=== PATIENT | female | born 1970 | race American Indian/Alaskan Native ===

== ENCOUNTER 2017-03-10 17:43 | Emergency (ER) | payer SELFPAY ==
[2017-03-10] MEDS ORDERED: NORCO 7.5/325 PO ONE (23:02)
[2017-03-10 23:23] LABS: Hematocrit 25.2 % (30.3-42.9); Hemoglobin 7.5 gm/dl (10.1-14.3); Mean Corpuscular HGB Conc 30 % (30-34); Platelet Count 510 K/mm3 (140-440); Red Blood Count 3.86 M/mm3 (3.65-5.03); Red Cell Distribution Width 19.3 % (13.2-15.2); White Blood Count 5.6 K/mm3 (4.5-11.0)
[2017-03-10 23:25] LABS: Mean Corpuscular Hemoglobin 20 pg (28-32); Mean Corpuscular Volume 65 fl (79-97)
[2017-03-10 23:36] LABS: Anion Gap 16 mmol/L; BUN/Creatinine Ratio 14; Blood Urea Nitrogen 10 mg/dL (7-17); Calcium 8.9 mg/dL (8.4-10.2); Carbon Dioxide 22 mmol/L (22-30); Chloride 104.8 mmol/L (98-107); Glucose 106 mg/dL (65-100); Potassium 4.1 mmol/L (3.6-5.0); Sodium 139 mmol/L (137-145)
--- NOTE | 2017-03-11 01:18 | Cat Scan Report ---
FINAL REPORT EXAM: CT HEAD/BRAIN WO CON HISTORY: dizziness, lightheadedness TECHNIQUE: Standard unenhanced CT of the head at 5.0 millimeter axial increments. PRIORS: None. FINDINGS: The ventricular system is normal in size and configuration. There is no evidence for parenchymal volume loss. There is no evidence for mass lesion, mass effect, midline shift, acute intracranial hemorrhage, or acute ischemia/ infarction. No evidence for acute skull fracture is seen. No abnormality in the overlying scalp soft tissues is seen. Visualized paranasal sinuses are clear. IMPRESSION: Negative CT of the head. No acute intracranial process noted.
[2017-03-11 01:37] LABS: Bilirubin,Urine NEG (Negative); Blood,Urine NEG (Negative); Ketones,Urine NEG (Negative); Leukocyte Esterase,Urine NEG (Negative); Mucus,Urine FEW /HPF; Nitrite,Urine NEG (Negative); Protein,Urine <15 mg/dL mg/dL (Negative)
[2017-03-11 04:24] VITALS: BP 127/63
--- NOTE | 2017-03-11 05:37 | Emergency Department Report ---
ED General Adult HPI - General Chief complaint: Extremity Injury, Lower Stated complaint: DIZZY, RIGHT SIDE PAIN Source: patient Mode of arrival: Ambulatory Limitations: No Limitations - History of Present Illness Initial comments: 47 year old female presents to ED with intermittent right sided body pain, dizziness, lightheadness x1 week. patient is ambulatory with normal observed gait. patient is stable, neurologiaclly intact and in no acute distress. patient denies fall/injury. patient states pain started in her right foot and began to travel up to right shoulder. -: Gradual, week(s) (1) Severity scale (0 -10): 0 Quality: aching Consistency: intermittent Improves with: immobilization Worsens with: movement Associated Symptoms: denies: confusion, chest pain, cough, diaphoresis, fever/ chills, headaches, loss of appetite, malaise, nausea/vomiting, rash, seizure, shortness of breath, syncope, weakness - Related Data Previous Rx's Medication Instructions Recorded Last Taken Type Ibuprofen [Motrin] 600 mg PO Q8H PRN #20 tablet 02/17/14 Unknown Rx traMADol [Ultram] 50 mg PO Q6HR PRN #14 tablet 02/17/14 Unknown Rx Azithromycin [Zithromax Z-JOSE] 0 mg PO DAILY #5 tab 01/23/15 Unknown Rx Benzonatate [Tessalon Perles] 100 mg PO Q8HR #20 capsule 01/23/15 Unknown Rx guaiFENesin/DEXTROMETHORPHAN 1 each PO BID #20 tab.er.12h 01/23/15 Unknown Rx [Mucinex DM ER 600-30 mg TAB] Ferrous Sulfate [Feosol 325 MG tab] 325 mg PO BID #120 tablet 03/11/17 Unknown Rx Allergies Allergy/AdvReac Type Severity Reaction Status Date / Time peach [Nicholas] Allergy Swelling Verified 03/10/17 17:48 ED Review of Systems ROS: Stated complaint: DIZZY, RIGHT SIDE PAIN Other details as noted in HPI Constitutional: denies: chills, fever Eyes: denies: eye pain, eye discharge, vision change ENT: denies: ear pain, throat pain Respiratory: denies: cough, shortness of breath, wheezing Cardiovascular: denies: chest pain, palpitations Endocrine: no symptoms reported Gastrointestinal: denies: abdominal pain, nausea, diarrhea Genitourinary: denies: urgency, dysuria, discharge Musculoskeletal: denies: back pain, joint swelling, arthralgia Skin: denies: rash, lesions Neurological: denies: headache, weakness, numbness, paresthesias, confusion, abnormal gait, vertigo Psychiatric: denies: anxiety, depression Hematological/Lymphatic: denies: easy bleeding, easy bruising ED Past Medical Hx - Past Medical History Hx Asthma: Yes Additional medical history: anemia c 2 blood transfusions. Heart Murmur - Surgical History Additional Surgical History: . left ankle - Social History Smoking Status: Current Every Day Smoker Substance Use Type: None - Medications Home Medications: Home Medications Medication Instructions Recorded Confirmed Last Taken Type Ibuprofen [Motrin] 600 mg PO Q8H PRN #20 tablet 02/17/14 Unknown Rx traMADol [Ultram] 50 mg PO Q6HR PRN #14 tablet 02/17/14 Unknown Rx Azithromycin [Zithromax Z-JOSE] 0 mg PO DAILY #5 tab 01/23/15 Unknown Rx Benzonatate [Tessalon Perles] 100 mg PO Q8HR #20 capsule 01/23/15 Unknown Rx guaiFENesin/DEXTROMETHORPHAN 1 each PO BID #20 tab.er.12h 01/23/15 Unknown Rx [Mucinex DM ER 600-30 mg TAB] Ferrous Sulfate [Feosol 325 MG tab] 325 mg PO BID #120 tablet 03/11/17 Unknown Rx ED Physical Exam - General Limitations: No Limitations General appearance: alert, in no apparent distress - Head Head exam: Present: atraumatic, normocephalic - Eye Eye exam: Present: normal appearance - ENT ENT exam: Present: mucous membranes moist - Neck Neck exam: Present: normal inspection, full ROM. Absent: tenderness - Respiratory Respiratory exam: Present: normal lung sounds bilaterally. Absent: respiratory distress, wheezes, chest wall tenderness - Cardiovascular Cardiovascular Exam: Present: regular rate, normal rhythm, normal heart sounds. Absent: systolic murmur, diastolic murmur, rubs, gallop - GI/Abdominal GI/Abdominal exam: Present: soft, normal bowel sounds. Absent: distended, tenderness - Extremities Exam Extremities exam: Present: normal inspection, full ROM. Absent: tenderness - Back Exam Back exam: Present: normal inspection, full ROM. Absent: tenderness - Neurological Exam Neurological exam: Present: alert, oriented X3, normal gait - Expanded Neurological Exam Expanded Neurological exam: Absent: innattentive Patient oriented to: Present: person, place, time Speech: Present: fluid speech Cranial nerves: EOM's Intact: Normal Sensory exam: Upper Extremity Light Touch: Normal, Lower Extremity Light Touch: Normal Motor strength exam: RUE: 5, LUE: 5, RLE: 5, LLE: 5 Best Eye Response ([place]): (4) open spontaneously Best Motor Response ([place]): (6) obeys commands Best Verbal Response ([place]): (5) oriented [place] Total: 15 - Psychiatric Psychiatric exam: Present: normal affect, normal mood - Skin Skin exam: Present: warm, dry, intact, normal color. Absent: rash ED Course Vital Signs 03/10/17 03/11/17 03/11/17 17:48 04:23 05:16 Temperature 98.4 F 97.9 F Pulse Rate 53 L 45 L 52 L Respiratory 18 16 Rate Blood Pressure 140/44 Blood Pressure 127/63 [Right] O2 Sat by Pulse 100 100 Oximetry ED Medical Decision Making - Lab Data Result diagrams: 03/10/17 23:05 03/10/17 23:05 Labs 03/10/17 03/10/17 03/10/17 23:05 23:05 23:05 WBC 5.6 RBC 3.86 Hgb 7.5 L Hct 25.2 L MCV 65 L MCH 20 L MCHC 30 RDW 19.3 H Plt Count 510 H Sodium 139 Potassium 4.1 Chloride 104.8 Carbon Dioxide 22 Anion Gap 16 BUN 10 Creatinine 0.7 Estimated GFR > 60 BUN/Creatinine Ratio 14 Glucose 106 H Calcium 8.9 Troponin T < 0.010 TSH HCG, Qual Negative Urine Color Urine Turbidity Urine pH Ur Specific [place] Urine Protein Urine Glucose (UA) Urine Ketones Urine Blood Urine Nitrite Urine Bilirubin Urine Urobilinogen Ur Leukocyte Esterase Urine WBC (Auto) Urine RBC (Auto) U Epithel Cells (Auto) Urine Mucus 03/10/17 03/11/17 Unknown 02:27 WBC RBC Hgb Hct MCV MCH MCHC RDW Plt Count Sodium Potassium Chloride Carbon Dioxide Anion Gap BUN Creatinine Estimated GFR BUN/Creatinine Ratio Glucose Calcium Troponin T TSH 2.310 HCG, Qual Urine Color Yellow Urine Turbidity Clear Urine pH 5.0 Ur Specific [place] 1.021 Urine Protein <15 mg/dl Urine Glucose (UA) Neg Urine Ketones Neg Urine Blood Neg Urine Nitrite Neg Urine Bilirubin Neg Urine Urobilinogen 4.0 Ur Leukocyte Esterase Neg Urine WBC (Auto) 1.0 Urine RBC (Auto) 2.0 U Epithel Cells (Auto) 3.0 Urine Mucus Few - EKG Data EKG shows normal: sinus rhythm Rate: bradycardia - Medical Decision Making 47 year old female presents to ED with right sided body pain, dizziness, lightheadness intermittent x1 week. patient has findings of anemia present on lab results (discussed with Dr Lino). patient states she knows she has anemia but states she was never told to take medication for it. patient denies active bleeding. patient agrees and understands to follow up with PCP at [facility] or to return to ED immediately for worsening symptoms. patient has normal observed gait with no presence of ataxia. Chronic anemia can present with symptoms such as irritability, weakness, and exercise intolerance. These symptoms of anemia are nonspecific and often not considered sufficient indications for transfusion. -UpToDate Critical care attestation.: If time is entered above; I have spent that time in minutes in the direct care of this critically ill patient, excluding procedure time. ED Disposition Clinical Impression: Anemia Qualifiers: Anemia type: unspecified type Qualified Code(s): D64.9 - Anemia, unspecified Disposition: DC-01 TO HOME OR SELFCARE Is pt being admited?: No Does the pt Need Aspirin: No Condition: Stable Instructions: Iron Deficiency Anemia (ED) Prescriptions: Ferrous Sulfate [Feosol 325 MG tab] 325 mg PO BID #120 tablet Referrals: [facility] [Outside] - 2-3 Days [facility] [Outside] - 2-3 Days Forms: Accompanied Note, Work/School Release Form(ED)
== END 2017-03-11 05:42 | disposition home or self-care (01) ==
LOC: ED 17:43
DX: D64.9 Anemia, unspecified (principal); J45.909 Unspecified asthma, uncomplicated; F17.200 Nicotine dependence, unspecified, uncomplicated; Z91.018 Allergy to other foods
CPT/HCPCS: 36415; 70450; 80048; 81001; 84443; 84484; 84703; 85027; 93005; 93010